=== PATIENT | female | born 1945 ===

== ENCOUNTER 2018-05-19 15:45 | Observation (INO) | payer MEDICARE, OTHER ==
[2018-05-19 15:58] VITALS: BMI 26.5
[2018-05-19] MEDS ORDERED: Sodium Chloride 0.9% 1,000 ML IV SCH (16:00)
--- NOTE | 2018-05-19 16:00 | ED PDOC ---
Arrival/HPI - General Chief Complaint: Altered Mental Status Time Seen by Provider: 05/19/18 15:53 Historian: Family, EMS EM Caveat: Altered Mental Status - History of Present Illness Narrative History of Present Illness (Text): 50 y/o F w/ h/o diabetes brought by EMS presenting with altered mental status. Per EMS, patient was found at home with hypoglycemic to the 20's, and was administered oral glucose. Patient then became combative and aphasic. As per daughter patient was at baseline earlier in the day and reports decreased oral intake and felt dizzy as the day progressed. Earlier blood glucose per daughter was 20, and subsequently wesley to 42 after being given juice. EMS was then called. A more complete HPI was unable to be obtained due to the patient's clinical condition Past Medical History - Provider Review Nursing Documentation Reviewed: Yes - Travel History Have you recently traveled outside [place] w/in the past 3 mons?: No Family/Social History - Physician Review Nursing Documentation Reviewed: Yes Family/Social History: No Known Family HX Allergies/Home Meds Allergies/Adverse Reactions: Allergies No Known Allergies Allergy (Verified 05/19/18 16:26) Home Medications: Home Meds Medication Instructions Recorded Confirmed Hydralazine HCl 100 TID 05/19/18 Review of Systems - Review of Systems Systems not reviewed;Unavailable: Altered Mental Status Physical Exam - Physical Exam Physical Exam Limitations: Altered Mental Status, Other (combative on exam) Vital Signs Reviewed: Yes Blood Pressure: Normal Pulse: Regular Respiratory Rate: Normal Mental Status: Positive for: Lethargic - Systems Exam Head: Present: Atraumatic, Normocephalic Pupils: Present: PERRL Extroacular Muscles: Present: EOMI Conjunctiva: Present: Normal Mouth: Present: Moist Mucous Membranes Neck: Present: Normal Range of Motion Respiratory/Chest: Present: Good Air Exchange, Rales (bilaterally) Cardiovascular: Present: Regular Rate and Rhythm, Normal S1, S2. No: Murmurs Abdomen: No: Tenderness, Distention, Peritoneal Signs Back: Present: Normal Inspection Upper Extremity: Present: Normal Inspection. No: Cyanosis, Edema Lower Extremity: Present: Normal Inspection. No: Edema Neurological: Present: GCS=15, CN II-XII Intact, Speech Normal Skin: Present: Warm, Dry, Normal Color. No: Rashes Psychiatric: Present: Alert, Lethargic (Lethargic but redirectable on verbal command), Other (Oriented x 1). No: Oriented x 3 Medical Decision Making ED Course and Treatment: 05/19/18 15:59 Impression: 50 year old female brought in by EMS for hypoglycemia and altered mental status. Differential Diagnosis included but are not limited to: Hypoglycemia episode CVA Seizure Plan: --CTH -- UA -- Labs -- CXR -- IV fluids -- Reassess and disposition Prior Visits: Notes and results from previous visits were reviewed. Progress Notes: 05/19/18 15:50 Code Stroke called. 05/19/18 15:55 Spoke to , who requests MRI and patient be given Ativan. Patient already transferred to CT scan. Based on clinical history and presentation, she does not think patient is having a stroke 05/19/18 16:12 Spoke to radiologist who says lacunar infarct and mild atrophy. No infarct this time. CTA will NOT be ordered and stroke protocol will be discontinued at this time. 05/19/18 16:38 Patient noted to have low blood sugar; will order d50 push. 05/19/18 17:[address] Beasley(capacitor repairer) who will evaluate patient. Spoke to Dr. Jd Daniel(hospitalist) who requests an update on patient's plan once ICU evaluation is complete. 05/19/18 17:17 Patient seen and evaluated by intensvist who states patient may go to the floor. Repeat fingerstick 156. Dr. Daniel at the bedside. \ - Critical Care Critical Care Minutes: 60 minutes - Lab Interpretations I have reviewed the lab results: Yes - RAD Interpretation Narrative RAD Interpretations (Text): 05/19/18 17:00 Chest X-ray: Dictator : Minh George MD FINDINGS: LUNGS: No active pulmonary disease. PLEURA: No significant pleural effusion identified, no pneumothorax apparent. CARDIOVASCULAR: No radiographic findings to suggest acute or significant cardiovascular disease. OSSEOUS STRUCTURES: No significant abnormalities. VISUALIZED UPPER ABDOMEN: Normal. OTHER FINDINGS: None. IMPRESSION: No active disease. 05/19/18 17:[address] without Contrast: Dictator : Minh George MD FINDINGS: HEMORRHAGE:No intracranial hemorrhage. BRAIN: No mass effect or edema. Cortical and cerebellar atrophy, periventricular small vessel disease. Small lacunar infarcts on the left. VENTRICLES: Unremarkable. No hydrocephalus. CALVARIUM: Unremarkable. PARANASAL SINUSES: Unremarkable as visualized. No significant inflammatory changes. MASTOID AIR CELLS: Unremarkable as visualized. No inflammatory changes. OTHER FINDINGS: None. IMPRESSION: No acute intracranial abnormalities. No significant findings to account for the clinical presentation. Code stroke protocol: Study completed 16:04 Results conveyed verbally at 16:13 Interpretation finalized and available for review 16:17 May 19, 2018. Radiology Orders: 05/19/18 15:58 HEAD W/O (CODE STROKE) [CT] Stat Maintenance Worker House Trailer: Radiologist NIHSS Scale ([place]) Time Performed: 15:50 - How Severe is the Stoke Baseline Level of Consciousness: 2=Obtunded LOC to Questions: 1=One correct LOC to commands: 1=Obeys one correctly Best Gaze: 0=Normal Visual: 0=No visual loss Facial: 0=Normal Motor Arm - Left: 0=No drift Motor Arm - Right: 0=No drift Motor Leg - Left: 0=No drift Motor Leg - Right: 0=No drift Limb Ataxia: 0=Absent Sensory: 0=Normal Best Language: 0=No aphasia Dysarthia: 0=Normal articulation Extinction & Inattention (Neglect): 0=Normal, no object Score: 4 Risk Level: Minor Stroke Risk rTPA Inclusion/Exclusion - Refusal of Treatment Patient Refused Treatment: Yes - Warning to TPA With Conditions Condition: Glucose Below 50 mg/dl - Scribe Statement The provider has reviewed the documentation as recorded by the Scribe Anatoliy Fermin Provider Scribe Attestation: All medical record entries made by the Scribe were at my direction and personally dictated by me. I have reviewed the chart and agree that the record accurately reflects my personal performance of the history, physical exam, medical decision making, and the department course for this patient. I have also personally directed, reviewed, and agree with the discharge instructions and disposition. Disposition/Present on Arrival - Present on Arrival Any Indicators Present on Arrival: No History of DVT/PE: No History of Uncontrolled Diabetes: No Urinary Catheter: No History of Decub. Ulcer: No - Disposition Have Diagnosis and Disposition been Completed?: Yes Diagnosis: Hypoglycemia, Hypertension Disposition: HOSPITALIZED Disposition Time: 17:52 Patient Plan: Observation Condition: IMPROVED Referrals: Annette Estrella MD [Primary Care Provider] - Follow up with primary Forms: Inbilin (Kiswahili)
[2018-05-19 16:11] LABS: BASO # 0.03 K/mm3 (0.0-2.0); BASO % 0.3 % (0.0-3.0); EOS # 0.1 (0.0-0.7); EOS % 0.5 % (1.5-5.0); GRAN # 6.73 (1.4-6.5); GRAN % 69.9 % (50.0-68.0); HEMOGLOBIN 11.3 g/dL (12.0-16.0); INR 0.91; LYMPH # 2.5 (1.2-3.4); LYMPH % 25.8 % (22.0-35.0); MEAN CELL VOLUME 82.9 fl (80.0-105.0); MEAN CORPUSCULAR HEMOGLOBIN 27.2 pg (25.0-35.0); MEAN CORPUSCULAR HGB CONC 32.8 g/dl (31.0-37.0); MEAN PLATELET VOLUME 10.4 fl (7.0-11.0); MONO # 0.3 (0.1-0.6); MONO % 3.5 % (1.0-6.0); PARTIAL THROMBOPLASTIN TIME 34.8 Seconds (25.1-36.5); PROTHROMBIN TIME 10.4 SECONDS (9.4-12.5); RBC 4.15 10^6/uL (3.5-6.1); RED CELL DISTRIBUTION WIDTH 14.2 % (11.5-14.5); WHITE BLOOD COUNT 9.6 10^3/ul (4.5-11.0)
[2018-05-19 16:17] LABS: ALB/GLOB RATIO 1.1 (1.1-1.8); ALBUMIN 4.4 g/dL (3.0-4.8); ALT/SGPT 15 U/L (7-56); AST/SGOT 26 U/L (14-36); BLOOD UREA NITROGEN 40 mg/dL (7-21); CALCIUM 9.6 mg/dL (8.4-10.5); GFR NON-AFRICAN AMERICAN 34
--- NOTE | 2018-05-19 16:22 | CT ---
Date of service: 05/19/2018 PROCEDURE: CT HEAD WITHOUT CONTRAST. HISTORY: Hypoglycemia. COMPARISON: None available. TECHNIQUE: Axial computed tomography images were obtained through the head/brain without intravenous contrast. Supplemental Coronal and Sagittal projectections created and reviewed. Radiation dose: Total exam DLP = 892.92 mGy-cm. This CT exam was performed using one or more of the following dose reduction techniques: Automated exposure control, adjustment of the mA and/or kV according to patient size, and/or use of iterative reconstruction technique. FINDINGS: HEMORRHAGE: No intracranial hemorrhage. BRAIN: No mass effect or edema. Cortical and cerebellar atrophy, periventricular small vessel disease. Small lacunar infarcts on the left. VENTRICLES: Unremarkable. No hydrocephalus. CALVARIUM: Unremarkable. PARANASAL SINUSES: Unremarkable as visualized. No significant inflammatory changes. MASTOID AIR CELLS: Unremarkable as visualized. No inflammatory changes. OTHER FINDINGS: None. IMPRESSION: No acute intracranial abnormalities. No significant findings to account for the clinical presentation. Code stroke protocol: Study completed 16:04 Results conveyed verbally at 16:13 Interpretation finalized and available for review 16:17 May 19, 2018.
[2018-05-19 16:24] LABS: TROPONIN I < 0.01 ng/mL
--- NOTE | 2018-05-19 16:37 | RAD ---
Date of service: 05/19/2018 HISTORY: Code Stroke COMPARISON: No prior. FINDINGS: LUNGS: No active pulmonary disease. PLEURA: No significant pleural effusion identified, no pneumothorax apparent. CARDIOVASCULAR: No radiographic findings to suggest acute or significant cardiovascular disease. OSSEOUS STRUCTURES: No significant abnormalities. VISUALIZED UPPER ABDOMEN: Normal. OTHER FINDINGS: None. IMPRESSION: No active disease.
--- NOTE | 2018-05-19 17:39 | CP.PCM.CON ---
History of Present Illness - History of Present Illness History of Present Illness: MICU CONSULT NOTE HPI Patient is 72yo female with PMhx of HTN, IDDM, on Levemir, and Novolog at home, presents with AMS from. As per the daughter patient had taken Levemir in the morning, had por PO intake, and subsequently became altered. Fingerstick was 20, given juice, repeat FS 42. Upon arrival to the ER patients BMP glucose 29, given D50, repeat FS 154. Patient is currently AAOx3, NAD, with no major complaints, denies fever, chills, cough, chest pain, sob, palpitations, ZUNIGA, dizziness. No other constitutional symptoms. PMhx IDDM, HTN PSHx NONE Allergies NKDA Meds as per EMR FHx NC ROS as above Social Denies smoking, etoh, drug use Review of Systems - Review of Systems Review of Systems: as per HPI Past Patient History - Past Social History Smoking Status: Unknown If Ever Smoked - PSYCHIATRIC Hx Substance Use: No (unknown; nonverbal) Meds Allergies/Adverse Reactions: Allergies Allergy/AdvReac Type Severity Reaction Status Date / Time No Known Allergies Allergy Verified 05/19/18 16:26 - Medications Medications: Current Medications Amlodipine Besylate (Norvasc) 10 mg PO DAILY KEVAN Aspirin (Ecotrin) 81 mg PO DAILY KEVAN Carvedilol (Coreg) 25 mg PO 0800,1800 KEVAN Ezetimibe (Zetia) 10 mg PO DAILY KEVAN Hydralazine HCl (Apresoline) 100 mg PO TID [facility] Sodium Chloride (Sodium Chloride 0.9%) 1,000 mls @ 100 mls/hr IV .Q10H KEVAN Isosorbide Mononitrate (Imdur Er) 30 mg PO DAILY KEVAN Letrozole (Femara) 2.5 mg PO DAILY KEVAN Levothyroxine Sodium (Synthroid) 150 mcg PO 0600 KEVAN Sevelamer HCl (Renagel) 800 mg PO TID KEVAN Physical Exam - Constitutional Appears: Non-toxic, No Acute Distress - Head Exam Head Exam: NORMAL INSPECTION - Eye Exam Eye Exam: Normal appearance - ENT Exam ENT Exam: Mucous Membranes Moist - Neck Exam Neck exam: Positive for: Full Rom - Respiratory Exam Respiratory Exam: Clear to Auscultation Bilateral, NORMAL BREATHING PATTERN - Cardiovascular Exam Cardiovascular Exam: REGULAR RHYTHM, +S1, +S2 - GI/Abdominal Exam GI & Abdominal Exam: Normal Bowel Sounds, Soft - Extremities Exam Extremities exam: Positive for: pedal edema - Neurological Exam Neurological exam: Alert, Oriented x3 - Psychiatric Exam Psychiatric exam: Anxious - Skin Skin Exam: Normal Color, Warm Results - Vital Signs Recent Vital Signs: Last Vital Signs Temp Pulse 64 05/19/18 16:45 Resp 15 05/19/18 16:45 BP 194/78 H 05/19/18 16:45 Pulse Ox 100 05/19/18 16:45 - Labs Result Diagrams: 05/19/18 16:04 05/19/18 16:04 Labs: Laboratory Results - last 24 hr 05/19/18 05/19/18 05/19/18 16:04 16:04 16:04 WBC 9.6 RBC 4.15 Hgb 11.3 L Hct 34.4 L MCV 82.9 MCH 27.2 MCHC 32.8 RDW 14.2 Plt Count 236 MPV 10.4 Gran % 69.9 H Lymph % (Auto) 25.8 [place] % (Auto) 3.5 Eos % (Auto) 0.5 L Baso % (Auto) 0.3 Gran # 6.73 H Lymph # (Auto) 2.5 [place] # (Auto) 0.3 Eos # (Auto) 0.1 Baso # (Auto) 0.03 PT 10.4 INR 0.91 APTT 34.8 Sodium 144 Potassium 3.6 Chloride 106 Carbon Dioxide 28 Anion Gap 14 BUN 40 H Creatinine 1.6 H Est GFR ( Amer) 41 Est GFR (Non-Af Amer) 34 POC Glucose (mg/dL) Random Glucose 29 L* Calcium 9.6 Total Bilirubin 0.3 AST 26 ALT 15 Alkaline Phosphatase 99 Troponin I < 0.01 Total Protein 8.6 H Albumin 4.4 Globulin 4.2 Albumin/Globulin Ratio 1.1 05/19/18 17:14 WBC RBC Hgb Hct MCV MCH MCHC RDW Plt Count MPV Gran % Lymph % (Auto) [place] % (Auto) Eos % (Auto) Baso % (Auto) Gran # Lymph # (Auto) [place] # (Auto) Eos # (Auto) Baso # (Auto) PT INR APTT Sodium Potassium Chloride Carbon Dioxide Anion Gap BUN Creatinine Est GFR ( Amer) Est GFR (Non-Af Amer) POC Glucose (mg/dL) 154 H Random Glucose Calcium Total Bilirubin AST ALT Alkaline Phosphatase Troponin I Total Protein Albumin Globulin Albumin/Globulin Ratio Assessment & Plan - Assessment and Plan (Free Text) Assessment: 72yo female with hypoglycemia, resolved HTN IDDM Hypoglycemia, resolved - Currently afebrile, BP elevated, has not taken evening BP meds, latest FS 154, patient AAOx3, no majors complaints Recommend: - supp o2 as needed, duonebs PRN - panculture, UCx, BCx, Procal, UA - BP control, PM BP meds, would start Clonidine 0.1mg PO TID - monitor FS - hold Levemir, Novolog - D51/2NS @100cc/hr - Endo evaluation - UA, Ulytes, Renal sono, unclear baseline Cr - GI ppx - DVT ppx - Monitor on telemetry
[2018-05-19] MEDS ORDERED: Dextrose 50% SYRINGE Inj (50 ml) IVP STA (17:44)
[2018-05-19] MEDS ORDERED: Dextrose 5%/0.45% NS 1,000 ML IV SCH ×2 (17:45)
[2018-05-19 17:58] LABS: PH,URINE 7.5 (4.7-8.0); URINE BILIRUBIN NEGATIVE (NEGATIVE); URINE BLOOD TRACE-INTACT (NEGATIVE); URINE GLUCOSE (UA) 250 mg/dL (NEGATIVE); URINE LEUKOCYTE ESTERASE NEGATIVE Leu/uL (NEGATIVE); URINE PROTEIN >=300 mg/dL (<30 mg/dL); URINE UROBILINOGEN 0.2 E.U./dL (<1 E.U./dL)
[2018-05-19 18:04] LABS: URINE APPEARANCE CLEAR (CLEAR); URINE COLOR YELLOW (YELLOW)
[2018-05-19 18:24] LABS: URINE BACTERIA FEW (NEG)
--- NOTE | 2018-05-19 18:26 | CP.PCM.HP ---
<Adelso Torres - Last Filed: 05/19/18 19:46> History of Present Illness - History of Present Illness History of Present Illness: 50 y/o female with PMH of HTN, DM2, TIA, hypothroidism BIB EMS from home after feeling dizzy, weak and unreponsive this afternoon. As per daughter at bedside, patient have had many doctors' appointments earlier today and she did not eat well till lunch time. Patient also reported that she took 15 units of Levemir this morning as her blood glucose was in 140s and took all her blood pressure meds. She takes 25 Levemir at night. As per EMS, patient was found at home with hypoglycemic to the 's, and was administered oral glucose. Patient then became combative and aphasic and was given juice and her BG was 42 at that time. Patient reported similar episode last January. Patient denied chest pain, palpitations, cough, SOB, nausea, vomiting, diarrhea, abdominal pain, dysurea, urinary frequency, blurry vision, focal weakness or sensory deficits. 12 points ROS reviewed with pertinent positive as above. PMH: HTN, DM2, TIA, hypothroidism, breast cancer PSH: cholecystectomy, , thyroidectomy, appendectomy, left lumpectomy for breast cancer SocHx: denied smoking, alcohol, drug use. walks with cane FamHx: mother with lung cancer Meds: lisinopril 10 qhs, imdur 30 qd, hydralazine 100 bid, prevastatin 20 qhs, synthroid 150mcg qd, asa 81, norvasc 10, coreg 10 bid, letrozole 2.5 qd, renvela 800mg qd, imdur 30, clonidine 0.1 bid prn, levemir 25 u, gabapentin 100 prn Allergy: NKDA PMD: Dr Estrella Supervisor Burling And Joining : Dr Juarez Python Developer: Dr Ferrara Present on Admission - Present on Admission Any Indicators Present on Admission: No Past Patient History - Past Social History Smoking Status: Unknown If Ever Smoked - PSYCHIATRIC Hx Substance Use: No (unknown; nonverbal) Meds Allergies/Adverse Reactions: Allergies Allergy/AdvReac Type Severity Reaction Status Date / Time No Known Allergies Allergy Verified 05/19/18 16:26 Physical Exam - Constitutional Appears: Well, No Acute Distress - Head Exam Head Exam: ATRAUMATIC, NORMOCEPHALIC - Eye Exam Eye Exam: Normal appearance, PERRL Pupil Exam: NORMAL ACCOMODATION - ENT Exam ENT Exam: Mucous Membranes Dry, Normal Oropharynx - Neck Exam Neck exam: Positive for: Full Rom, Normal Inspection - Respiratory Exam Respiratory Exam: Clear to Auscultation Bilateral, NORMAL BREATHING PATTERN - Cardiovascular Exam Cardiovascular Exam: REGULAR RHYTHM, +S1, +S2 - GI/Abdominal Exam GI & Abdominal Exam: Normal Bowel Sounds, Soft. absent: Tenderness - Extremities Exam Extremities exam: Positive for: normal capillary refill, normal inspection, pedal pulses present - Back Exam Back exam: NORMAL INSPECTION - Neurological Exam Neurological exam: Alert, CN II-XII Intact, Oriented x3, Reflexes Normal - Psychiatric Exam Psychiatric exam: Normal Affect, Normal Mood - Skin Skin Exam: Dry, Intact, Normal Color Results - Vital Signs Recent Vital Signs: Last Vital Signs Temp Pulse 64 05/19/18 16:45 Resp 15 05/19/18 16:45 BP 194/78 H 05/19/18 16:45 Pulse Ox 100 05/19/18 16:45 - Labs Result Diagrams: 05/19/18 16:04 05/19/18 16:04 Labs: Laboratory Results - last 24 hr 05/19/18 05/19/18 05/19/18 16:04 16:04 16:04 WBC 9.6 RBC 4.15 Hgb 11.3 L Hct 34.4 L MCV 82.9 MCH 27.2 MCHC 32.8 RDW 14.2 Plt Count 236 MPV 10.4 Gran % 69.9 H Lymph % (Auto) 25.8 [place] % (Auto) 3.5 Eos % (Auto) 0.5 L Baso % (Auto) 0.3 Gran # 6.73 H Lymph # (Auto) 2.5 [place] # (Auto) 0.3 Eos # (Auto) 0.1 Baso # (Auto) 0.03 PT 10.4 INR 0.91 APTT 34.8 Sodium 144 Potassium 3.6 Chloride 106 Carbon Dioxide 28 Anion Gap 14 BUN 40 H Creatinine 1.6 H Est GFR ( Amer) 41 Est GFR (Non-Af Amer) 34 POC Glucose (mg/dL) Random Glucose 29 L* Calcium 9.6 Total Bilirubin 0.3 AST 26 ALT 15 Alkaline Phosphatase 99 Troponin I < 0.01 Total Protein 8.6 H Albumin 4.4 Globulin 4.2 Albumin/Globulin Ratio 1.1 05/19/18 17:14 WBC RBC Hgb Hct MCV MCH MCHC RDW Plt Count MPV Gran % Lymph % (Auto) [place] % (Auto) Eos % (Auto) Baso % (Auto) Gran # Lymph # (Auto) [place] # (Auto) Eos # (Auto) Baso # (Auto) PT INR APTT Sodium Potassium Chloride Carbon Dioxide Anion Gap BUN Creatinine Est GFR ( Amer) Est GFR (Non-Af Amer) POC Glucose (mg/dL) 154 H Random Glucose Calcium Total Bilirubin AST ALT Alkaline Phosphatase Troponin I Total Protein Albumin Globulin Albumin/Globulin Ratio Assessment & Plan - Assessment and Plan (Free Text) Assessment: 50 y/o female with PMH of HTN, DM2, TIA, hypothroidism BIB EMS from home after feeling dizzy, weak and unresponsive this afternoon. Patient had poor oral intake. Blood glucose level [address] head is negative for intracranial hemorrhage. Patient admitted for AMS Plan: AMS -likely due to hypoglycemia secondary to poor oral intake -patient AAOx3 now -CMP glucose 29 on admission -continue D5 0.45% NS @75cc/ hr -CT head: no intracranial hemorrhage -CXR: no active disease -UA, urine C&S -procal ordered -accucheck q2h -telemetry monitoring IDDM -accucheck -hold levemir -A1C -endocrinology consulted Dr Sheffield Hypertensive urgency -BP 200/101 in ED -patient asymptomatic -start clonidine 0.1 tid -start hydralazine po 100mg tid -resume home meds norvasc, coreg -continue asa HLD -continue lipitor, ezetimibe -lipid panel NADIRA on CKD -BUN/Cr 40/1.6 . unkown baseline -continue home med renagel -urine lytes -microalbumin with Cr ratio Hypothyroidism s/p thyroidectomy -continue home med synthroid H/O breast cancer s/p lumpectomy -continue home med femara Prophylaxis -DVT ppx, lovenox -GI ppx protonix Diabetic diet Case reviewed and plan discussed with attending physician Dr Daniel <Violeta Daniel R - Last Filed: 05/20/18 17:15> Results - Vital Signs Recent Vital Signs: Last Vital Signs Temp 98.1 F 09/27/18 06:00 Pulse 74 05/20/18 14:00 Resp 20 05/20/18 06:00 BP 146/76 05/20/18 13:27 Pulse Ox 98 05/20/18 06:00 - Labs Result Diagrams: 05/20/18 06:30 05/20/18 06:30 Labs: Laboratory Results - last 24 hr 05/19/18 05/19/18 05/19/18 16:04 16:04 17:14 WBC RBC Hgb Hct MCV MCH MCHC RDW Plt Count MPV Gran % Lymph % (Auto) [place] % (Auto) Eos % (Auto) Baso % (Auto) Gran # Lymph # (Auto) [place] # (Auto) Eos # (Auto) Baso # (Auto) Sodium Potassium Chloride Carbon Dioxide Anion Gap BUN Creatinine Est GFR ( Amer) Est GFR (Non-Af Amer) POC Glucose (mg/dL) 154 H Random Glucose Hemoglobin A1c 6.8 H Calcium Magnesium Total Bilirubin AST ALT Alkaline Phosphatase Total Protein Albumin Globulin Albumin/Globulin Ratio Triglycerides Cholesterol LDL Cholesterol Direct HDL Cholesterol Procalcitonin < 0.05 L Thyroxine (T4) TSH 3rd Generation Urine Color Urine Appearance Urine pH Ur Specific [place] Urine Protein Urine Glucose (UA) Urine Ketones Urine Blood Urine Nitrate Urine Bilirubin Urine Urobilinogen Ur Leukocyte Esterase Urine RBC Urine WBC Ur Epithelial Cells Urine Bacteria 05/19/18 05/19/18 05/19/18 17:53 20:02 21:23 WBC RBC Hgb Hct MCV MCH MCHC RDW Plt Count MPV Gran % Lymph % (Auto) [place] % (Auto) Eos % (Auto) Baso % (Auto) Gran # Lymph # (Auto) [place] # (Auto) Eos # (Auto) Baso # (Auto) Sodium Potassium Chloride Carbon Dioxide Anion Gap BUN Creatinine Est GFR ( Amer) Est GFR (Non-Af Amer) POC Glucose (mg/dL) 137 H 158 H Random Glucose Hemoglobin A1c Calcium Magnesium Total Bilirubin AST ALT Alkaline Phosphatase Total Protein Albumin Globulin Albumin/Globulin Ratio Triglycerides Cholesterol LDL Cholesterol Direct HDL Cholesterol Procalcitonin Thyroxine (T4) TSH 3rd Generation Urine Color Yellow Urine Appearance Clear Urine pH 7.5 Ur Specific [place] 1.025 Urine Protein >=300 H Urine Glucose (UA) 250 H Urine Ketones Negative Urine Blood Trace-intact H Urine Nitrate Negative Urine Bilirubin Negative Urine Urobilinogen 0.2 Ur Leukocyte Esterase Negative Urine RBC 2 - 5 Urine WBC 1 - 3 Ur Epithelial Cells 4 - 5 Urine Bacteria Few 05/20/18 05/20/18 05/20/18 06:30 06:30 06:30 WBC 3.8 L D RBC 4.22 Hgb 11.3 L Hct 34.7 L MCV 82.2 MCH 26.8 MCHC 32.6 RDW 13.9 Plt Count 195 MPV 10.0 Gran % 67.5 Lymph % (Auto) 26.6 [place] % (Auto) 4.9 Eos % (Auto) 0.5 L Baso % (Auto) 0.5 Gran # 2.59 Lymph # (Auto) 1.0 L [place] # (Auto) 0.2 Eos # (Auto) 0.0 Baso # (Auto) 0.02 Sodium 139 Potassium 3.6 Chloride 105 Carbon Dioxide 27 Anion Gap 11 BUN 28 H Creatinine 1.4 H Est GFR ( Amer) 45 Est GFR (Non-Af Amer) 37 POC Glucose (mg/dL) Random Glucose 183 H Hemoglobin A1c Calcium 8.9 Magnesium 2.2 Total Bilirubin 0.4 AST 22 ALT 12 Alkaline Phosphatase 91 Total Protein 7.5 Albumin 3.8 Globulin 3.6 Albumin/Globulin Ratio 1.0 L Triglycerides 242 H Cholesterol 173 LDL Cholesterol Direct 76 HDL Cholesterol 46 Procalcitonin Thyroxine (T4) TSH 3rd Generation Urine Color Urine Appearance Urine pH Ur Specific [place] Urine Protein Urine Glucose (UA) Urine Ketones Urine Blood Urine Nitrate Urine Bilirubin Urine Urobilinogen Ur Leukocyte Esterase Urine RBC Urine WBC Ur Epithelial Cells Urine Bacteria 05/20/18 05/20/18 06:30 07:27 WBC RBC Hgb Hct MCV MCH MCHC RDW Plt Count MPV Gran % Lymph % (Auto) [place] % (Auto) Eos % (Auto) Baso % (Auto) Gran # Lymph # (Auto) [place] # (Auto) Eos # (Auto) Baso # (Auto) Sodium Potassium Chloride Carbon Dioxide Anion Gap BUN Creatinine Est GFR ( Amer) Est GFR (Non-Af Amer) POC Glucose (mg/dL) 197 H Random Glucose Hemoglobin A1c Calcium Magnesium Total Bilirubin AST ALT Alkaline Phosphatase Total Protein Albumin Globulin Albumin/Globulin Ratio Triglycerides Cholesterol LDL Cholesterol Direct HDL Cholesterol Procalcitonin Thyroxine (T4) 9.4 TSH 3rd Generation 4.70 H Urine Color Urine Appearance Urine pH Ur Specific [place] Urine Protein Urine Glucose (UA) Urine Ketones Urine Blood Urine Nitrate Urine Bilirubin Urine Urobilinogen Ur Leukocyte Esterase Urine RBC Urine WBC Ur Epithelial Cells Urine Bacteria Attending/Attestation - Attestation I have personally seen and examined this patient.: Yes I have fully participated in the care of the patient.: Yes I have reviewed all pertinent clinical information: Yes Notes (Text): Patient seen and examined by me at 5PM with resident 05/19/18. Case including HPI, physical exam, and assessment and plan discussed with resident. Agree with above with following additions/corrections. Patient is a 50-year-old female past medical history significant for hypertension, type 2 diabetes, TIA, renal insufficiency, and hypothyroidism that was brought into the emergency room for feeling dizzy, weak, and unresponsive. Patient's daughter at bedside. History taken from both patient and patient's daughter with patient's permission. Per daughter patient had multiple doctors appointments this morning. In between the appointments, patient went to the mall to walk around and have lunch. Patient was unable to get out of the car because she felt very weak. When she got home, daughter took patient's blood sugar which was 39. Patient was given orange juice and blood sugars rechecked. At that time blood sugar was 43. Per daughter, patient was very lethargic and not responding. Patient's daughter stated that she could not get patient's blood sugar up and therefore patient was brought her to the emergency room. Per patient she normally takes Levemir 26 units at bedtime. Depending on her sugars, she also takes Levemir in the morning. She states that her sugars despite morning were around 145. She did take Levemir 15 units this morning. Per daughter patient ate very little for breakfast today. Patient states that she does follow with an filter tank tender helper. Patient's daughter states that this also happened approximately a year ago. At time of exam, patient's blood sugar 154 and patient is feeling much better. Patient is awake and alert and speaking in full sentences. Patient denies any headaches or dizziness. No nausea, vomiting, or abdominal pain. No change in vision. No fevers or chills. No diarrhea or constipation. No neck pain or back pain. Patient does not bleed or bruise easily. No dysuria or burning with urination. 12 point review of systems reviewed by me. Please see above HPI, all other systems negative. Family history. Mother of lung cancer. Father age of 53 of a stroke. Physical exam: General: Awake and alert sitting up in bed in no acute distress HEENT: Normocephalic, atraumatic. Pupils equal reactive. Extraocular muscles intact. No scleral icterus. Oropharynx is pink and moist. No pharyngeal erythema or exudate appreciated. Neck is supple. Ears and nose externally unremarkable. Hearing grossly intact. Cardiovascular: Normal rhythm. Normal S1-S2. No murmurs, rubs, or gallops appreciated Pulmonary: Normal respiratory effort. No rhonchi, rales, or wheezing appreciated. Gastrointestinal: Soft, nondistended. Nontender. Positive bowel sounds all 4 quadrants, no guarding. Musculoskeletal: Moves all extremities, no calf tenderness, no edema appreciated. No CVA tenderness Central nervous system: AAOx 3, CN 2-12 grossly intact Dermatologic: Skin warm and dry. Assessment and plan: Patient is a 50-year-old female past medical history significant for hypertension, type 2 diabetes, TIA, renal insufficiency, and hypothyroidism that was brought into the emergency room for feeling dizzy, weak, and unresponsive. Patient found to have hypoglycemia. 1. Hypoglycemia in a patient with type 2 diabetes. Likely secondary to patient taking extra Levemir and not eating a full breakfast. Blood sugars improved now. Patient placed on D5 half-normal saline. Endocrinology consulted, follow-up recommendations. Will monitor Accu-Cheks every 2 hours. Hold insulin for now. 2. Near syncope. Likely secondary to hypoglycemia. The stroke was called in the emergency room. Head CT per radiologist showed no acute intracranial abnormalities. Unlikely a stroke. Neurology consulted, follow up recommendations. Continue aspirin and Lipitor. 3. Renal insufficiency. Patient's last creatinine per family was 2. She does follow follow G has an outpatient. Continue home Renagel. 4. Essential hypertension with hypertensive urgency here. Continue home hydralazine, Coreg, Norvasc, lisinopril, and Imdur. We'll give clonidine as needed. 5. Hypothyroidism. Continue home Synthroid. 6. Hypercholesterolemia. Continue home Zetia. Patient takes pravastatin at home. Placed on Lipitor here. 7. History of breast cancer. Continue home femara. Case was discussed in detail with the patient and patient's daughter and at bedside regarding her diagnosis and treatment plan. All questions were answered.
[2018-05-19] MEDS ORDERED: Insulin Lispro (humaLOG) MEDIUM Coverage SC SCH (22:00)
--- NOTE | 2018-05-20 04:50 | CON ---
DATE: 05/19/2018 ENDOCRINOLOGY CONSULT LOCATION: In room 372 HISTORY OF PRESENT ILLNESS: This is a 72-year-old female with known history of type 2 insulin-requiring diabetes, presenting here with altered mental status and supervening symptomatic hypoglycemia related to reduced oral intake today and continued use of her insulin regimen as noted and is being referred now for diabetic evaluation and management. PAST MEDICAL HISTORY As mentioned above, history of type 2 insulin-requiring diabetes, currently on Levemir given as 25 units at bedtime, with glipizide given as 10 mg once daily; however, today she took insulin twice, initially was Levemir given as 15 units in the morning and 25 units in the evening as noted; history of hypertensive cardiovascular disease and dyslipidemia; history of breast carcinoma with a previous left lumpectomy, currently on Femara medication; history of thyroidectomy, currently on levothyroxine given as 150 mcg daily; history of cerebrovascular disease with a previous TIA with no residual weakness thereof. FAMILY HISTORY: Positive for hypertension and diabetes. Her mother had lung cancer. SOCIAL HISTORY: Patient has supportive family. No known substance use. REVIEW OF SYSTEMS: As mentioned above, admits to generalized body weakness with easy fatigability and tiredness and suboptimal energy level; also admits to severe bouts of dizziness and lightheadedness with actually a brief bout of unresponsiveness at home as witnessed by her daughter and the glucose level was in the low 20s as noted. No chest pains or palpitations or PND. Her oral intake has been variable with nausea, dyspepsia and vague upper abdominal pains. No recent alterations of bowel and urinary patterns. PHYSICAL EXAMINATION: GENERAL: This is an average built female in no apparent distress. VITAL SIGNS: Blood pressure of 140/80; pulse of 100 beats per minute, regular; temperature 98; respirations 20; height is 5 feet 3 inches; weight is 150 pounds. HEENT: Head normocephalic. Eyes anicteric with pink conjunctivae. Funduscopy not possible at this time. Ears, nose and throat otherwise normal. NECK: The thyroid bed is flat with no palpable nodules or masses nor any cervical adenopathy. HEART: Adynamic precordium. S1, S2 is rapid and regular. LUNGS: Clear to auscultation. ABDOMEN: Flat, soft, with positive bowel sounds. EXTREMITIES: No peripheral edema. Pulses are +2 bilaterally. LABORATORY DATA: The chemistry showed a BUN of 40, sodium 144, potassium 3.6, chloride 106, CO2 of 28, glucose 29, and creatinine 1.6. Subsequent glucose levels have ranged from 137 to 158 mg/dL. ASSESSMENT: This is a 72-year-old female with uncontrolled and decompensated type 2 insulin-requiring diabetes presenting here with symptomatic hypoglycemia and associated neuroglycopenic and hyperadrenergic manifestations with a brief bout of unresponsiveness, reversed by D50 bolus injections as given. She also has diabetic microvascular complications of retinopathy, polyneuropathy and nephropathy with diabetic macrovascular complications of cerebrovascular disease and coronary artery disease. PLAN OF MANAGEMENT: As discussed with the patient and staff. We will modify her current insulin coverage to a very low-dose algorithm, using Humalog insulin to obviate hypoglycemia and detailed orders have been given. We will observe her glycemic fluctuations overnight and if her oral intake improves; then we will decide to restart her on a much lower dose of basal insulin as indicated. We will also start her on oral hypoglycemic therapy as indicated. Hemoglobin A1c is pending and we will also repeat thyroid studies and adjust her dose regimen accordingly. We will follow. Tiffany Sheffield MD
[2018-05-20] MEDS ORDERED: Levothyroxine 150 MCG TAB PO SCH (06:00)
[2018-05-20 07:11] LABS: BASO # 0.02 K/mm3 (0.0-2.0); BASO % 0.5 % (0.0-3.0); EOS % 0.5 % (1.5-5.0); GRAN # 2.59 (1.4-6.5); GRAN % 67.5 % (50.0-68.0); HEMOGLOBIN 11.3 g/dL (12.0-16.0); LYMPH % 26.6 % (22.0-35.0); MEAN CELL VOLUME 82.2 fl (80.0-105.0); MEAN CORPUSCULAR HEMOGLOBIN 26.8 pg (25.0-35.0); MEAN CORPUSCULAR HGB CONC 32.6 g/dl (31.0-37.0); MONO # 0.2 (0.1-0.6); MONO % 4.9 % (1.0-6.0); RBC 4.22 10^6/uL (3.5-6.1); RED CELL DISTRIBUTION WIDTH 13.9 % (11.5-14.5); WHITE BLOOD COUNT 3.8 10^3/ul (4.5-11.0)
[2018-05-20 07:31] LABS: ALBUMIN 3.8 g/dL (3.0-4.8); CALCIUM 8.9 mg/dL (8.4-10.5)
[2018-05-20 07:42] LABS: T4 9.4 ug/dL (5.5-11.0)
[2018-05-20] MEDS: Insulin Lispro (humaLOG) LOW Coverage SC SCH ×2 (07:56→12:45)
[2018-05-20] MEDS ORDERED: Bisacodyl 5mg EC Tab PO ONE (08:02)
[2018-05-20] MEDS ORDERED: Enoxaparin 30 mg Syringe SC SCH (10:00)
[2018-05-20 10:44] VITALS: RESP 20; TEMP 98.1; O2SAT 98
[2018-05-20 12:50] VITALS: BP 146/76
--- NOTE | 2018-05-20 13:04 | CARD ---
APPROVED REPORT Date of service: 05/19/2018 EKG Measurement Heart [id number] <Conclusion> Sinus rhythm with 1st degree AV block Right bundle branch block STTW changes
--- NOTE | 2018-05-20 14:07 | CP.PCM.DIS ---
Provider - Provider Date of Admission: 05/19/18 17:18 Attending physician: Violeta Daniel DO Primary care physician: Annette Estrella MD Consults: endo electric sign assembler Time Spent in preparation of Discharge (in minutes): 45 Hospital Course - Lab Results Lab Results: Most Recent Lab Values WBC 3.8 10^3/ul (4.5-11.0) L D 05/20/18 06:30 RBC 4.22 10^6/uL (3.5-6.1) 05/20/18 06:30 Hgb 11.3 g/dL (12.0-16.0) L 05/20/18 06:30 Hct 34.7 % (36.0-48.0) L 05/20/18 06:30 MCV 82.2 fl (80.0-105.0) 05/20/18 06:30 MCH 26.8 pg (25.0-35.0) 05/20/18 06:30 MCHC 32.6 g/dl (31.0-37.0) 05/20/18 06:30 RDW 13.9 % (11.5-14.5) 05/20/18 06:30 Plt Count 195 10^3/uL (120.0-450.0) 05/20/18 06:30 MPV 10.0 fl (7.0-11.0) 05/20/18 06:30 Gran % 67.5 % (50.0-68.0) 05/20/18 06:30 Lymph % (Auto) 26.6 % (22.0-35.0) 05/20/18 06:30 [place] % (Auto) 4.9 % (1.0-6.0) 05/20/18 06:30 Eos % (Auto) 0.5 % (1.5-5.0) L 05/20/18 06:30 Baso % (Auto) 0.5 % (0.0-3.0) 05/20/18 06:30 Gran # 2.59 (1.4-6.5) 05/20/18 06:30 Lymph # (Auto) 1.0 (1.2-3.4) L 05/20/18 06:30 [place] # (Auto) 0.2 (0.1-0.6) 05/20/18 06:30 Eos # (Auto) 0.0 (0.0-0.7) 05/20/18 06:30 Baso # (Auto) 0.02 K/mm3 (0.0-2.0) 05/20/18 06:30 PT 10.4 SECONDS (9.4-12.5) 05/19/18 16:04 INR 0.91 05/19/18 16:04 APTT 34.8 Seconds (25.1-36.5) 05/19/18 16:04 Sodium 139 mmol/L (132-148) 05/20/18 06:30 Potassium 3.6 mmol/L (3.6-5.0) 05/20/18 06:30 Chloride 105 mmol/L (98-107) 05/20/18 06:30 Carbon Dioxide 27 mmol/L (21-33) 05/20/18 06:30 Anion Gap 11 (10-20) 05/20/18 06:30 BUN 28 mg/dL (7-21) H 05/20/18 06:30 Creatinine 1.4 mg/dl (0.7-1.2) H 05/20/18 06:30 Est GFR ( Amer) 45 05/20/18 06:30 Est GFR (Non-Af Amer) 37 05/20/18 06:30 POC Glucose (mg/dL) 197 mg/dL (65-110) H 05/20/18 07:27 Random Glucose 183 mg/dL (70-110) H 05/20/18 06:30 Hemoglobin A1c 6.8 % (4.2-6.5) H 05/19/18 16:04 Calcium 8.9 mg/dL (8.4-10.5) 05/20/18 06:30 Magnesium 2.2 mg/dL (1.7-2.2) 05/20/18 06:30 Total Bilirubin 0.4 mg/dL (0.2-1.3) 05/20/18 06:30 AST 22 U/L (14-36) 05/20/18 06:30 ALT 12 U/L (7-56) 05/20/18 06:30 Alkaline Phosphatase 91 U/L (38-126) 05/20/18 06:30 Troponin I < 0.01 ng/mL 05/19/18 16:04 Total Protein 7.5 g/dL (5.8-8.3) 05/20/18 06:30 Albumin 3.8 g/dL (3.0-4.8) 05/20/18 06:30 Globulin 3.6 gm/dL 05/20/18 06:30 Albumin/Globulin Ratio 1.0 (1.1-1.8) L 05/20/18 06:30 Triglycerides 242 mg/dL (35-160) H 05/20/18 06:30 Cholesterol 173 mg/dL (130-200) 05/20/18 06:30 LDL Cholesterol Direct 76 mg/dL (0-129) 05/20/18 06:30 HDL Cholesterol 46 mg/dL (29-60) 05/20/18 06:30 Procalcitonin < 0.05 NG/ML (0.19-0.49) L 05/19/18 16:04 Thyroxine (T4) 9.4 ug/dL (5.5-11.0) 05/20/18 06:30 TSH 3rd Generation 4.70 mIU/mL (0.46-4.68) H 05/20/18 06:30 Urine Color Yellow (YELLOW) 05/19/18 17:53 Urine Appearance Clear (CLEAR) 05/19/18 17:53 Urine pH 7.5 (4.7-8.0) 05/19/18 17:53 Ur Specific [place] 1.025 (1.005-1.035) 05/19/18 17:53 Urine Protein >=300 mg/dL (<30 mg/dL) H 05/19/18 17:53 Urine Glucose (UA) 250 mg/dL (NEGATIVE) H 05/19/18 17:53 Urine Ketones Negative mg/dL (NEGATIVE) 05/19/18 17:53 Urine Blood Trace-intact (NEGATIVE) H 05/19/18 17:53 Urine Nitrate Negative (NEGATIVE) 05/19/18 17:53 Urine Bilirubin Negative (NEGATIVE) 05/19/18 17:53 Urine Urobilinogen 0.2 E.U./dL (<1 E.U./dL) 05/19/18 17:53 Ur Leukocyte Esterase Negative Suman/uL (NEGATIVE) 05/19/18 17:53 Urine RBC 2 - 5 /hpf (0-2) 05/19/18 17:53 Urine WBC 1 - 3 /hpf (0-6) 05/19/18 17:53 Ur Epithelial Cells 4 - 5 /hpf (0-5) 05/19/18 17:53 Urine Bacteria Few (NEG) 05/19/18 17:53 - Hospital Course Hospital Course: 50 y/o female with PMH of HTN, DM2, TIA, hypothroidism brought in by EMS from home after feeling dizzy, weak and unresponsive in the afternoon. Patient had poor oral intake during the day and took 15 units of her Levemir without eating. Blood glucose level [address] head is negative for intracranial hemorrhage. P atient admitted for AMS in the setting of hypoglycemia in IDDM patient. Chest XR done with no active disease. Urinalaysis did not show UTI. Patient admitted to telemetry for observation. Patient was founf to have high blood pressure readings in 190s/90s without symptoms. Her blood glucose was monitored closely. Was given enough hydration with D5 half NS till she became euglycemic. Patient was seen by electric sign assembler who recommended to stay under observation. Patient was also seen by supply controller who adjusted her anti-diabetic medications and recommenced to discharge the patient on 15-20 unit of levemir at night based on blood sugar level. Started Glipizide 5 mg twice daily with breakfast and dinner and not to take it skipping a meal. Patient is medically optimized and euglycemic and her blood pressure was optimized to her baseline . Patient was clinically stable and ready to discharge. On discharge: Please follow up with your Primary Care Doctor within 3-5 days of discharge. Please follow up with your supply controller within 7 days, please see before you leave for vacation. Please resume your home meds as prescribed by your doctors. Please keep watching your blood sugar daily and stay hydrated. Eat all meals. Please make sure to take only 15-20 units of Levemir at bedtime. Please take glipizide 5 mg twice a day with breakfast and with dinner. Please do NOT take Glipizide if you have NOT eaten or you plan to skip a meal. Please follow a diabetic diet If your symptoms return, please return to nearest emergency room. Discharge Exam - Head Exam Head Exam: ATRAUMATIC, NORMOCEPHALIC - Eye Exam Eye Exam: EOMI, Normal appearance Pupil Exam: NORMAL ACCOMODATION - ENT Exam ENT Exam: Mucous Membranes Moist, Normal Oropharynx - Neck Exam Neck exam: Full Rom, Normal Inspection - Respiratory Exam Respiratory Exam: Clear to PA & Lateral, NORMAL BREATHING PATTERN - Cardiovascular Exam Cardiovascular Exam: REGULAR RHYTHM, +S1, +S2 - GI/Abdominal Exam GI & Abdominal Exam: Normal Bowel Sounds - Extremities Exam Extremities exam: normal capillary refill, pedal pulses present Additional comments: right sided weakness - Back Exam Back exam: NORMAL INSPECTION - Neurological Exam Neurological exam: Alert, CN II-XII Intact, Oriented x3, Reflexes Normal - Psychiatric Exam Psychiatric exam: Normal Affect, Normal Mood - Skin Skin Exam: Dry, Intact, Normal Color, Warm Discharge Plan - Discharge Medications Prescriptions: amLODIPine [Norvasc] 10 mg PO DAILY #30 tab Aspirin [Ecotrin] 81 mg PO DAILY #30 tabec Atorvastatin [Lipitor] 10 mg PO DIN #30 tab Carvedilol [Coreg] 25 mg PO 0800,1800 #60 tab Ezetimibe [Zetia] 10 mg PO DAILY #30 tab GlipiZIDE [Glucotrol] 5 mg PO BID #60 tab hydrALAZINE [Apresoline] 100 mg PO TID #90 tab Isosorbide Mononitrate ER [Imdur ER] 30 mg PO DAILY #30 tab Letrozole [Femara] 2.5 mg PO DAILY #30 tab Levothyroxine [Synthroid] 150 mcg PO 0600 #30 tab Lisinopril [Zestril] 20 mg PO DAILY #30 tab Sevelamer [Renagel] 800 mg PO TID #90 tab - Follow Up Plan Condition: IMPROVED Disposition: HOME/ ROUTINE Instructions: Altered Mental Status (DC), Low Blood Sugar in People With Diabetes, Hypertension (DC), Hypertension (GEN) Additional Instructions: Please follow up with your Primary Care Doctor within 3-5 days of discharge. Please follow up with your supply controller within 7 days, please see before you leave for vacation. Please resume your home meds as prescribed by your doctors. Please keep watching your blood sugar daily and stay hydrated. Eat all meals. Please make sure to take only 15-20 units of Levemir at bedtime. Please take glipizide 5 mg twice a day with breakfast and with dinner. Please do NOT take Glipizide if you have NOT eaten or you plan to skip a meal. Please follow a diabetic diet If your symptoms return, please return to nearest emergency room. Referrals: Annette Estrella MD [Primary Care Provider] -
[2018-05-20 15:58] VITALS: PULSE 74
--- NOTE | 2018-05-20 16:03 | PN ---
DATE: 05/20/2018 ENDO FOLLOWUP NOTE LOCATION: In room 372. SUBJECTIVE: This is a 72-year-old female, presenting here with symptomatic hypoglycemia and associated neuroglycopenic and hyperadrenergic manifestations reversed by D50 bolus injections and dextrose infusion and is now being followed closely for metabolic management. There was also a brief bout of unresponsiveness, which was reversed immediately as noted thereof. Her latest chemistries today showed a BUN of 28, sodium 139, potassium 3.6, chloride 105, CO2 of 27, glucose 183 and creatinine 1.4. Her glucose levels overnight have ranged from 158-197 mg/dL. Her thyroid study showed a T4 of 9.4 with a TSH of 4.7. So at this time, we will continue the same low-dose correction scale using Humalog insulin as given. We will start her on a very low-dose basal insulin with Levemir given as 6 units subcu at bedtime daily as given. We will titrate incrementally as indicated to optimize metabolic control. We will also continue the levothyroxine given as 150 mcg daily before breakfast as ordered. We will obtain serial chemistries and supplement accordingly as needed. We will also consider the addition of glipizide if hyperglycemic levels supervene with her meals or postprandially as noted. We will follow and advise accordingly. Tiffany Sheffield MD
[2018-05-20] MEDS ORDERED: Insulin Detemir 100 units/ml Vial (Levemir) SC SCH (22:00)
== END 2018-05-20 18:53 | disposition home or self-care (01) ==
LOC: ED 15:45 → MERGE 17:18 → ERH 17:18 → 3RSO 20:22
PROVIDERS: ADMIT Hospitalist; ATTEND Hospitalist
DX: E11.649 Type 2 diabetes mellitus with hypoglycemia without coma (principal); I16.0 Hypertensive urgency; I10 Essential (primary) hypertension; E03.9 Hypothyroidism, unspecified; Z86.73 Personal history of transient ischemic attack (TIA), and cerebral infarction without residual deficits; Z79.4 Long term (current) use of insulin; Z90.49 Acquired absence of other specified parts of digestive tract; N28.9 Disorder of kidney and ureter, unspecified; E78.00 Pure hypercholesterolemia, unspecified; Z85.3 Personal history of malignant neoplasm of breast; E11.42 Type 2 diabetes mellitus with diabetic polyneuropathy; E11.319 Type 2 diabetes mellitus with unspecified diabetic retinopathy without macular edema; E11.21 Type 2 diabetes mellitus with diabetic nephropathy; I67.9 Cerebrovascular disease, unspecified; I25.10 Atherosclerotic heart disease of native coronary artery without angina pectoris
CPT/HCPCS: 36415; 70450; 71045; 80053; 80061; 81001; 82948; 83036; 83735; 84145; 84436; 84443; 84484; 85025; 85610; 85730; 87086; 93005; 96374; 99285; G0378; J7042